=== PATIENT | female | born 1985 | race Caucasian/White ===

== ENCOUNTER 2016-11-10 18:43 | Emergency (ER) | payer OTHER ==
[~2016-11-10] VITALS: Ht 170.1 cm; Wt 79.4 kg
[~2016-11-10 18:43] MED LIST: ACETAZOLAMIDE250 MG PO; ALLEGRA60 M2 PO; AMOXIL500 M1 PO; AUGMENTIN 875875 MG PO; BACTRIM DS 8001 TA1 PO; BUTALBITAL-ASPI1 CAP PO; CIPROFLOXACIN500 MG PO; CLEOCIN HCL150 MG PO; CLINDAMYCIN HC300 MG PO; CLINDAMYCIN150 MG PO; CYCLOBENZAPRINE5 M3 PO; DIAMOX500 MG PO; FERRIMIN 150150 M1; FLEXERIL5 MG PO; HYDROCODONE BIT1 T11 PO; IBU600 MG PO; IRON90 MG PO; KEFLEX500 MG PO; LEVOFLOXACIN500 MG PO; MOTRIN800 MG PO; Motrin,Rufen800 MG PO; PAMELOR10 M1 PO; PAXIL20 M1 PO; PERCOCET 325 MG1 TA2 PO; PNV PRENATAL HE1 TAB PO; PREDNISONE10 MG PO; PREDNISONE20 M1 PO; PRENATAL1 TA1 PO; PROTONIX40 MG PO; PYRIDIUM200 MG PO; ROBAXIN750 MG PO; SILVADENE,SSD C50 GM PO; STOOL SOFTENER240 M2 PO; SYNTHROID,LEV100 MCG PO; SYNTHROID,LEV125 MCG PO; TRAMADOL HCL50 MG PO; VICODIN 5/500 505 MG PO; VITAMIN D400 I1 PO; VITAMINS FOR HA1 CAP PO; VOLTAREN50 M1 PO; ZITHROMAX Z PA250 MG PO; ZOFRAN ODT4 MG PO; ZOFRAN ODT4 MG SL
== END 2016-11-10 19:46 | disposition home or self-care (01) ==
LOC: ED 18:43
DX: N93.8 Other specified abnormal uterine and vaginal bleeding (principal); F17.200 Nicotine dependence, unspecified, uncomplicated; Z88.1 Allergy status to other antibiotic agents; Z79.899 Other long term (current) drug therapy

== ENCOUNTER 2017-08-09 17:55 | Emergency (ER) | payer OTHER ==
[~2017-08-09] VITALS: Wt 68.0 kg
[2017-08-09] MEDS ORDERED: ROBAXIN500 M1 PO (18:17)
[2017-08-09] MEDS ORDERED: ANAPROX DS550 MG PO (18:17)
== END 2017-08-09 18:18 | disposition home or self-care (01) ==
LOC: ED 17:55
DX: S39.012A Strain of muscle, fascia and tendon of lower back, initial encounter (principal); Z88.8 Allergy status to other drugs, medicaments and biological substances; X50.0XXA Overexertion from strenuous movement or load, initial encounter; Y93.89 Activity, other specified; Y92.89 Other specified places as the place of occurrence of the external cause; Y99.8 Other external cause status

== ENCOUNTER → 2018-04-26 | Outpatient (CLI) | payer OTHER ==
[~2018-04-26] MED LIST changes: +AMLODIPINE BESYL5 MG PO; +ANAPROX DS550 MG PO; +CEFTRIAXONE1 GM IJ; +LEVOTHYROXINE137 MCG PO; +METRONIDAZOLE500 M1 PO; +ROBAXIN500 M1 PO; +SYNTHROID,LEV112 MCG PO; +Synthroid,Levo50 MCG PO; +ZOFRAN4 MG PO
[2018-04-26 08:55] LABS: HEMATOCRIT 38.8 % (37.0-47.0); HEMOGLOBIN 12.7 g/dl (12.0-16.0); MEAN CELL VOLUME 85.7 fl (81.0-99.0); MEAN CORPUSCULAR HGB CONC 32.7 g/dl (33.0-37.0); MEAN PLATELET VOLUME 8.9 fl (9.6-12.3); PLATELET COUNT AUTOMATED 542 10*3/uL (130-400); RED BLOOD COUNT 4.53 10*6/uL (4.10-5.10); RED CELL DISTRI WIDTH 16.2 % (0-14.5); WHITE BLOOD COUNT 14.5 10*3/uL (4.8-10.8)
[2018-04-26 09:25] LABS: ALBUMIN 3.7 gm/dl (3.1-4.5); ALKALINE PHOSPHATASE 97 U/L (45-117); BUN 7 mg/dl (7-24); CHLORIDE 110 mmol/L (98-107); CHOLESTEROL 192 mg/dL (<200); CREATININE 0.84 mg/dL (0.55-1.02); HDL CHOLESTEROL 45 mg/dl (40-60); LDL CHOLESTEROL 110 mg/dL (9-159); POTASSIUM 3.9 mmol/L (3.5-5.1); SGOT/AST 17 IU/L (3-35); SGPT/ALT 25 U/L (12-78); SODIUM 139 mmol/L (136-145); T3 UPTAKE 30 % (31-39); TOTAL PROTEIN 7.6 gm/dL (6.4-8.2); TRIGLYCERIDES 183 mg/dl (<150); URIC ACID 4.7 mg/dL (2.6-6.0); VLDL CHOLESTEROL 37 mg/dL (6-40)
[2018-04-26 09:31] LABS: THYROXINE (T4) TOTAL 5.6 ug/dl (4.8-13.9)
[2018-04-26 09:40] LABS: TOTAL CELLS COUNTED 100 #CELLS
[2018-04-26 09:41] LABS: BURR CELLS FEW; PLATELET SUFFICIENCY HIGH (NORMAL)
[2018-04-27 08:07] LABS: IMMUNOGLOBULIN G, QNT 965 mg/dL (700-1600); IMMUNOGLOBULIN M, QNT 216 mg/dL (26-217); RHEUMATOID ARTHRITIS FACTOR <10.0 IU/mL (0.0-13.9)
[2018-04-27 16:08] LABS: ANTI-SMOOTH MUSCLE ANTIBODY 14 Units (0-19)
[2018-04-28 19:02] LABS: ALTERNARIA ALTERNATA, IGE <0.10 kU/L (Class 0); AMERICAN ELM, IGE <0.10 kU/L (Class 0); ASPERGILLUS FUMIGATU, IGE <0.10 kU/L (Class 0); BERMUDA GRASS, IGE <0.10 kU/L (Class 0); BIRCH, COMMON SILVER IGE <0.10 kU/L (Class 0); CLADOSPORIUM HERBARU, IGE <0.10 kU/L (Class 0); D FARINAE MITE <0.10 kU/L (Class 0); D PTERONYSSINUS <0.10 kU/L (Class 0); DOG DANDER, IGE <0.10 kU/L (Class 0); IMMUNOGLOBULIN IgE 002170 <2 IU/mL (0-100); MAPLE LEAF SYCAMORE, IGE <0.10 kU/L (Class 0); MAPLE/BOX ELDER, IGE <0.10 kU/L (Class 0); MOUSE URINE IGE <0.10 kU/L (Class 0); PENICILLIUM CHRYSOGENUM, IGE <0.10 kU/L (Class 0); ROUGH PIGWEED, IGE <0.10 kU/L (Class 0); SHEEP SORREL (DOCK), IGE <0.10 kU/L (Class 0); SHORT RAGWEED, IGE <0.10 kU/L (Class 0); TIMOTHY, IGE <0.10 kU/L (Class 0); WALNUT TREE, IGE <0.10 kU/L (Class 0); WHITE ASH, IGE <0.10 kU/L (Class 0); WHITE MULBERRY, IGE <0.10 kU/L (Class 0); WHITE OAK, IGE <0.10 kU/L (Class 0)
== END | disposition home or self-care (01) ==
LOC: LAB 08:30
PROVIDERS: Pediatrics
DX: E03.9 Hypothyroidism, unspecified (principal); J32.9 Chronic sinusitis, unspecified

== ENCOUNTER 2018-05-15 08:22 | Emergency (ER) | payer OTHER ==
[~2018-05-15] VITALS: Wt 79.8 kg
[~2018-05-15 08:22] MED LIST changes: -AMLODIPINE BESYL5 MG PO; -CEFTRIAXONE1 GM IJ; -LEVOTHYROXINE137 MCG PO; -METRONIDAZOLE500 M1 PO; -SYNTHROID,LEV112 MCG PO; -Synthroid,Levo50 MCG PO; -ZOFRAN4 MG PO
[2018-05-15] MEDS ORDERED: AMLODIPINE BESYL5 MG PO (08:24)
[2018-05-15] MEDS ORDERED: LEVOTHYROXINE137 MCG PO (08:25)
[2018-05-15 09:43] LABS: HEMATOCRIT 39.4 % (37.0-47.0); HEMOGLOBIN 12.7 g/dl (12.0-16.0); MEAN CELL VOLUME 85.8 fl (81.0-99.0); MEAN CORPUSCULAR HGB 27.7 pg (27.0-31.0); MEAN CORPUSCULAR HGB CONC 32.2 g/dl (33.0-37.0); MEAN PLATELET VOLUME 9.3 fl (9.6-12.3); PLATELET COUNT AUTOMATED 436 10*3/uL (130-400); RED BLOOD COUNT 4.59 10*6/uL (4.10-5.10); RED CELL DISTRI WIDTH 16.2 % (0-14.5); WHITE BLOOD COUNT 7.9 10*3/uL (4.8-10.8)
[2018-05-15 09:46] LABS: ALBUMIN 3.5 gm/dl (3.1-4.5); ALKALINE PHOSPHATASE 149 U/L (45-117); BUN 8 mg/dl (7-24); CHLORIDE 106 mmol/L (98-107); CREATININE 0.89 mg/dL (0.55-1.02); LIPASE 85 U/L (73-393); SGOT/AST 68 IU/L (3-35); SGPT/ALT 97 U/L (12-78); SODIUM 138 mmol/L (136-145); TOTAL PROTEIN 7.3 gm/dL (6.4-8.2)
[2018-05-15 09:49] LABS: ATYPICAL LYMPHS 3 % (0-0); PLATELET SUFFICIENCY HIGH (NORMAL); TOTAL CELLS COUNTED 100 #CELLS
[2018-05-15 09:54] LABS: ACANTHOCYTES FEW; BURR CELLS MODERATE
[2018-05-15 10:03] LABS: BILIRUBIN 1+ (NEGATIVE); BLOOD NEGATIVE (NEGATIVE); CLARITY SL CLOUDY (CLEAR); COLOR YELLOW (YELLOW); GLUCOSE NEGATIVE (NEGATIVE); KETONE 2+ (NEGATIVE); LEUKO ESTERASE NEGATIVE (NEGATIVE); NITRITE NEGATIVE (NEGATIVE); SPECIFIC GRAVITY >= 1.030 (1.005-1.030)
[2018-05-15 10:21] LABS: BACTERIA 2+; EPITHELIAL CELLS 21-30; MUCOUS 4+; RBC 0-2 rbc/hpf (0-2)
[2018-05-15] MEDS ORDERED: ZOFRAN4 MG PO (11:38)
[2018-05-26] MEDS ORDERED: Synthroid,Levo50 MCG PO (14:08)
[2018-05-26] MEDS ORDERED: SYNTHROID,LEV112 MCG PO (14:08)
[2018-05-26] MEDS ORDERED: METRONIDAZOLE500 M1 PO (14:08)
[2018-05-26] MEDS ORDERED: CEFTRIAXONE1 GM IJ (14:08)
== END 2018-05-15 11:57 | disposition home or self-care (01) ==
LOC: ED 08:22
PROVIDERS: Nurse Practitioner Family
DX: K52.9 Noninfective gastroenteritis and colitis, unspecified (principal); R03.0 Elevated blood-pressure reading, without diagnosis of hypertension; F17.200 Nicotine dependence, unspecified, uncomplicated; Z88.1 Allergy status to other antibiotic agents; Z79.899 Other long term (current) drug therapy

== ENCOUNTER → 2018-09-07 | Outpatient (CLI) | payer OTHER, BC ==
[~2018-09-07] MED LIST changes: +AMLODIPINE BESYL5 MG PO; +CEFTRIAXONE1 GM IJ; +LEVOTHYROXINE137 MCG PO; +METRONIDAZOLE500 M1 PO; +SYNTHROID,LEV112 MCG PO; +Synthroid,Levo50 MCG PO; +ZOFRAN4 MG PO
[2018-09-07 13:31] LABS: HEMATOCRIT 38.6 % (37.0-47.0); HEMOGLOBIN 11.8 g/dl (12.0-16.0); MEAN CELL VOLUME 82.3 fl (81.0-99.0); MEAN CORPUSCULAR HGB 25.2 pg (27.0-31.0); MEAN CORPUSCULAR HGB CONC 30.6 g/dl (33.0-37.0); MEAN PLATELET VOLUME 8.8 fl (9.6-12.3); PLATELET COUNT AUTOMATED 526 10*3/uL (130-400); RED BLOOD COUNT 4.69 10*6/uL (4.10-5.10); RED CELL DISTRI WIDTH 18.8 % (0-14.5); WHITE BLOOD COUNT 13.7 10*3/uL (4.8-10.8)
[2018-09-07 13:54] LABS: ALBUMIN 3.8 gm/dl (3.1-4.5); ALKALINE PHOSPHATASE 107 U/L (45-117); BUN 9 mg/dl (7-24); CHLORIDE 110 mmol/L (98-107); POTASSIUM 3.9 mmol/L (3.5-5.1); SGOT/AST 17 IU/L (3-35); SGPT/ALT 28 U/L (12-78); SODIUM 138 mmol/L (136-145); TOTAL PROTEIN 8.1 gm/dL (6.4-8.2)
[2018-09-07 14:00] LABS: ACT PARTIAL THROMBO TIME 23.4 SECONDS (20.8-31.5); INTERNATIONAL NORM RATIO 0.9 (2.0-3.5)
[2018-09-07 14:03] LABS: PLATELET SUFFICIENCY HIGH (NORMAL); TOTAL CELLS COUNTED 100 #CELLS
[2018-09-09 02:05] LABS: PROTEIN S, FREE 67 % (57-157); PROTEIN S, TOTAL 67 % (60-150); PROTEIN S-FUNCTIONAL 164525 64 % (63-140)
== END | disposition home or self-care (01) ==
LOC: LAB 13:02
PROVIDERS: Family Medicine
DX: D64.9 Anemia, unspecified (principal); D68.59 Other primary thrombophilia; E03.9 Hypothyroidism, unspecified; I82.0 Budd-Chiari syndrome; F32.9 Major depressive disorder, single episode, unspecified; E55.9 Vitamin D deficiency, unspecified

== ENCOUNTER → 2019-01-14 | Outpatient (CLI) | payer OTHER ==
[2019-01-14 11:15] LABS: HEMATOCRIT 39.4 % (37.0-47.0); HEMOGLOBIN 12.3 g/dl (12.0-16.0); MEAN CELL VOLUME 86.4 fl (81.0-99.0); MEAN CORPUSCULAR HGB CONC 31.2 g/dl (33.0-37.0); MEAN PLATELET VOLUME 9.5 fl (9.6-12.3); PLATELET COUNT AUTOMATED 537 10*3/uL (130-400); RED BLOOD COUNT 4.56 10*6/uL (4.10-5.10); RED CELL DISTRI WIDTH 20.9 % (0-14.5); WHITE BLOOD COUNT 18.9 10*3/uL (4.8-10.8)
[2019-01-14 11:42] LABS: ALBUMIN 3.8 gm/dl (3.1-4.5); ALKALINE PHOSPHATASE 97 U/L (45-117); BUN 10 mg/dl (7-24); CHLORIDE 109 mmol/L (98-107); CREATININE 0.98 mg/dL (0.55-1.02); IRON 42 ug/dL (50-170); POTASSIUM 3.4 mmol/L (3.5-5.1); SGOT/AST 14 IU/L (3-35); SGPT/ALT 21 U/L (12-78); SODIUM 140 mmol/L (136-145); TOTAL IRON BINDING CAPACITY 471 ug/dl (250-450); TOTAL PROTEIN 7.6 gm/dL (6.4-8.2)
[2019-01-14 12:03] LABS: FERRITIN 6.9 ng/mL (10.0-291.0)
[2019-01-14 12:05] LABS: HOWELL-JOLLY BODIES FEW; PLATELET SUFFICIENCY HIGH (NORMAL); POLYCHROMASIA SLIGHT; TOTAL CELLS COUNTED 100 #CELLS
[2019-01-14 12:08] LABS: TARGET CELLS FEW
[2019-01-18 09:08] LABS: CMV QNT Negative (Negative)
== END | disposition home or self-care (01) ==
LOC: LAB 01-13 15:32
PROVIDERS: Internal Medicine
DX: D72.829 Elevated white blood cell count, unspecified (principal); D72.820 Lymphocytosis (symptomatic); D50.9 Iron deficiency anemia, unspecified

== ENCOUNTER 2019-02-21 04:53 | Emergency (ER) | payer OTHER ==
[~2019-02-21] VITALS: Ht 170.1 cm; Wt 88.5 kg
== END 2019-02-21 06:54 | disposition home or self-care (01) ==
LOC: ED 04:53
DX: M54.2 Cervicalgia (principal); F17.210 Nicotine dependence, cigarettes, uncomplicated; Z88.2 Allergy status to sulfonamides; Z88.1 Allergy status to other antibiotic agents; Z79.899 Other long term (current) drug therapy; Y08.89XA Assault by other specified means, initial encounter; Y93.89 Activity, other specified; Y92.238 Other place in hospital as the place of occurrence of the external cause; Y99.8 Other external cause status

== ENCOUNTER → 2019-08-31 | Outpatient (CLI) | payer OTHER ==
[2019-09-02 00:04] LABS: B PERTUSSIS IGA AB <1.0 index (0.0-0.9); B PERTUSSIS IGM AB 2.4 index (0.0-0.9); DIPHTHERIA ANTITOXOID AB 1.15 IU/mL (<0.10); TETANUS ANTITOXOID IGG AB 3.12 IU/mL (<0.10)
[2019-09-02 21:03] LABS: B PERTUSSIS IGG AB 4.53 index (0.00-0.94)
== END | disposition home or self-care (01) ==
LOC: LAB 13:08
PROVIDERS: Family Medicine
DX: Z01.84 Encounter for antibody response examination (principal)

== ENCOUNTER → 2019-09-10 | Outpatient (CLI) | payer OTHER | END | disposition home or self-care (01) | LOC: CT 08:53 | DX: M85.00 Fibrous dysplasia (monostotic), unspecified site (principal); R51 Headache ==

== ENCOUNTER → 2019-09-19 | Outpatient (CLI) | payer OTHER | END | disposition home or self-care (01) | LOC: MRI 00:47 | DX: G43.509 Persistent migraine aura without cerebral infarction, not intractable, without status migrainosus (principal); G93.89 Other specified disorders of brain; M27.8 Other specified diseases of jaws; M54.2 Cervicalgia ==

== ENCOUNTER 2019-11-21 08:47 | Emergency (ER) | payer OTHER ==
[~2019-11-21] VITALS: Ht 170.1 cm; Wt 87.5 kg
[2019-11-21] MEDS ORDERED: ACYCLOVIR200 MG PO (09:13)
[2019-11-21] MEDS ORDERED: LIDEX 0.05% CRE15 GM T (09:13)
== END 2019-11-21 09:16 | disposition home or self-care (01) ==
LOC: ED 08:47
DX: B00.9 Herpesviral infection, unspecified (principal); L30.9 Dermatitis, unspecified; K21.9 Gastro-esophageal reflux disease without esophagitis; E03.9 Hypothyroidism, unspecified; F17.210 Nicotine dependence, cigarettes, uncomplicated; Z88.2 Allergy status to sulfonamides; Z88.1 Allergy status to other antibiotic agents; Z79.899 Other long term (current) drug therapy; Z98.51 Tubal ligation status

== ENCOUNTER → 2020-03-28 | Outpatient (CLI) | payer OTHER ==
[~2020-03-28] MED LIST changes: +ACYCLOVIR200 MG PO; +LIDEX 0.05% CRE15 GM T
[2020-03-28 11:32] LABS: HEMATOCRIT 45.9 % (37.0-47.0); MEAN CELL VOLUME 90.9 fl (81.0-99.0); MEAN CORPUSCULAR HGB 30.3 pg (27.0-31.0); MEAN CORPUSCULAR HGB CONC 33.3 g/dl (33.0-37.0); MEAN PLATELET VOLUME 9.2 fl (9.6-12.3); PLATELET COUNT AUTOMATED 482 10*3/uL (130-400); RED BLOOD COUNT 5.05 10*6/uL (4.10-5.10); RED CELL DISTRI WIDTH 13.2 % (0-14.5)
[2020-03-28 11:46] LABS: ALBUMIN 3.5 gm/dl (3.1-4.5); ALKALINE PHOSPHATASE 151 U/L (45-117); BUN 7 mg/dl (7-24); CHLORIDE 109 mmol/L (98-107); CREATININE 0.84 mg/dL (0.55-1.02); POTASSIUM 3.8 mmol/L (3.5-5.1); SGOT/AST 21 IU/L (3-35); SGPT/ALT 51 U/L (12-78); SODIUM 138 mmol/L (136-145); TOTAL PROTEIN 7.6 gm/dL (6.4-8.2)
[2020-03-28 11:50] LABS: TOTAL CELLS COUNTED 100 #CELLS
[2020-03-28 11:52] LABS: PLATELET SUFFICIENCY HIGH (NORMAL)
[2020-03-28 11:53] LABS: BURR CELLS FEW
[2020-03-28 12:06] LABS: FREE T4 1.61 ng/dl (0.76-1.46)
== END | disposition home or self-care (01) ==
LOC: LAB 11:14
PROVIDERS: Family Medicine; ATTEND Family Medicine
DX: Z13.1 Encounter for screening for diabetes mellitus (principal); C91.90 Lymphoid leukemia, unspecified not having achieved remission; E03.9 Hypothyroidism, unspecified; E55.9 Vitamin D deficiency, unspecified; R53.82 Chronic fatigue, unspecified

== ENCOUNTER → 2020-04-12 | Outpatient (CLI) | payer OTHER | END | disposition home or self-care (01) | LOC: CT 13:00 | PROVIDERS: ATTEND Specialist | DX: M85.08 Fibrous dysplasia (monostotic), other site (principal) ==

== ENCOUNTER → 2020-04-30 | Outpatient (CLI) | payer OTHER | END | disposition home or self-care (01) | LOC: RAD 17:34 | PROVIDERS: ATTEND Family Medicine | DX: R06.02 Shortness of breath (principal); R06.2 Wheezing ==

== ENCOUNTER → 2020-05-01 | Outpatient (CLI) | payer OTHER | END | disposition home or self-care (01) | LOC: COVID19 07:36 | PROVIDERS: ATTEND Family Medicine | DX: Z20.828 Contact with and (suspected) exposure to other viral communicable diseases (principal) ==

== ENCOUNTER → 2020-05-09 | Outpatient (CLI) | payer OTHER | END | disposition home or self-care (01) | LOC: US 04-17 08:30 | PROVIDERS: ATTEND Family Medicine | DX: R16.2 Hepatomegaly with splenomegaly, not elsewhere classified (principal) ==

== ENCOUNTER 2020-12-26 15:03 | Emergency (ER) | payer OTHER ==
[~2020-12-26] VITALS: Ht 170.1 cm; Wt 74.8 kg
[2020-12-26] MEDS ORDERED: IBUPROFEN600 MG PO (16:58)
== END 2020-12-26 17:12 | disposition home or self-care (01) ==
LOC: ED 15:03
DX: M77.9 Enthesopathy, unspecified (principal); M25.531 Pain in right wrist; Z98.51 Tubal ligation status; Z98.890 Other specified postprocedural states; Z88.1 Allergy status to other antibiotic agents; Z88.8 Allergy status to other drugs, medicaments and biological substances

== ENCOUNTER → 2021-02-25 | Outpatient (CLI) | payer OTHER ==
[~2021-02-25] MED LIST changes: +IBUPROFEN600 MG PO
== END | disposition home or self-care (01) ==
LOC: MRI 09:00
PROVIDERS: ATTEND Neurological Surgery
DX: M85.08 Fibrous dysplasia (monostotic), other site (principal); M27.8 Other specified diseases of jaws; G93.5 Compression of brain; Z98.890 Other specified postprocedural states

== ENCOUNTER → 2021-04-02 | Outpatient (CLI) | payer OTHER | END | disposition home or self-care (01) | LOC: COVID19 15:55 | PROVIDERS: ATTEND Hospitalist | DX: Z11.52 Encounter for screening for COVID-19 (principal) ==

== ENCOUNTER 2021-08-27 08:55 | Emergency (ER) | payer OTHER ==
[~2021-08-27] VITALS: Wt 87.1 kg
[2021-08-27] MEDS ORDERED: VOLTAREN ARTHRI20 GM T (09:55)
[2021-08-27] MEDS ORDERED: NAPROXEN250 MG PO (09:55)
[2021-08-27] MEDS ORDERED: TYLENOL325 M1 PO (09:55)
== END 2021-08-27 10:05 | disposition home or self-care (01) ==
LOC: ED 08:55
DX: S50.01XA Contusion of right elbow, initial encounter (principal); S49.91XA Unspecified injury of right shoulder and upper arm, initial encounter; E03.9 Hypothyroidism, unspecified; F17.210 Nicotine dependence, cigarettes, uncomplicated; Z88.1 Allergy status to other antibiotic agents; W00.0XXA Fall on same level due to ice and snow, initial encounter; Y93.89 Activity, other specified; Y92.89 Other specified places as the place of occurrence of the external cause; Y99.8 Other external cause status

== ENCOUNTER 2021-12-01 08:12 | Emergency (ER) | payer OTHER ==
[~2021-12-01] VITALS: Wt 77.1 kg
[~2021-12-01 08:12] MED LIST changes: +NAPROXEN250 MG PO; +TYLENOL325 M1 PO; +VOLTAREN ARTHRI20 GM T
[2021-12-01] MEDS ORDERED: TYLENOL325 M1 PO (08:36)
[2021-12-01] MEDS ORDERED: NAPROXEN250 MG PO (08:36)
== END 2021-12-01 09:00 | disposition home or self-care (01) ==
LOC: ED 08:12
DX: S82.892A Other fracture of left lower leg, initial encounter for closed fracture (principal); Z88.1 Allergy status to other antibiotic agents; E03.9 Hypothyroidism, unspecified; E66.9 Obesity, unspecified; F17.210 Nicotine dependence, cigarettes, uncomplicated; X58.XXXA Exposure to other specified factors, initial encounter; Y93.89 Activity, other specified; Y92.89 Other specified places as the place of occurrence of the external cause; Y99.8 Other external cause status

== ENCOUNTER → 2022-02-05 | Outpatient (CLI) | payer OTHER | END | disposition home or self-care (01) | LOC: US 09:24 | PROVIDERS: ATTEND Family Medicine | DX: E04.2 Nontoxic multinodular goiter (principal); E06.3 Autoimmune thyroiditis ==

== ENCOUNTER 2022-03-15 15:01 | Emergency (ER) | payer OTHER ==
[~2022-03-15] VITALS: Wt 88.5 kg
[2022-03-15] MEDS ORDERED: NAPROSYN500 MG PO (17:44)
== END 2022-03-15 17:51 | disposition home or self-care (01) ==
LOC: ED 15:01
DX: S16.1XXA Strain of muscle, fascia and tendon at neck level, initial encounter (principal); F17.210 Nicotine dependence, cigarettes, uncomplicated; Z88.2 Allergy status to sulfonamides; Z88.1 Allergy status to other antibiotic agents; Z79.899 Other long term (current) drug therapy; Z98.51 Tubal ligation status; Y04.8XXA Assault by other bodily force, initial encounter; Y93.89 Activity, other specified; Y92.238 Other place in hospital as the place of occurrence of the external cause; Y99.0 Civilian activity done for income or pay

== ENCOUNTER → 2022-03-18 | Outpatient (CLI) | payer OTHER ==
[~2022-03-18] MED LIST changes: +NAPROSYN500 MG PO
== END | disposition home or self-care (01) ==
LOC: CT 10:40
PROVIDERS: ATTEND Specialist
DX: J32.0 Chronic maxillary sinusitis (principal); D23.4 Other benign neoplasm of skin of scalp and neck; J34.89 Other specified disorders of nose and nasal sinuses

== ENCOUNTER → 2022-04-15 | Outpatient (CLI) | payer OTHER ==
[2022-04-15 10:00] LABS: FREE T4 0.61 ng/dl (0.76-1.46)
== END | disposition home or self-care (01) ==
LOC: LAB 08:42
PROVIDERS: ATTEND Family Medicine
DX: E06.3 Autoimmune thyroiditis (principal)

== ENCOUNTER 2022-06-01 17:57 | Emergency (ER) | payer OTHER ==
[~2022-06-01] VITALS: Wt 88.9 kg
== END 2022-06-01 19:12 | disposition home or self-care (01) ==
LOC: ED 17:57
DX: S61.214A Laceration without foreign body of right ring finger without damage to nail, initial encounter (principal); S60.041A Contusion of right ring finger without damage to nail, initial encounter; Z88.1 Allergy status to other antibiotic agents; Z88.8 Allergy status to other drugs, medicaments and biological substances; W23.0XXA Caught, crushed, jammed, or pinched between moving objects, initial encounter; Y93.89 Activity, other specified; Y92.69 Other specified industrial and construction area as the place of occurrence of the external cause; Y99.9 Unspecified external cause status

== ENCOUNTER 2022-06-13 19:30 | Emergency (ER) | payer OTHER ==
[~2022-06-13 19:30] MED LIST changes: -VIBRAMYCIN100 MG PO
[2022-06-13 20:23] LABS: HEMATOCRIT 38.6 % (37.0-47.0); MEAN CELL VOLUME 92.3 fl (81.0-99.0); MEAN CORPUSCULAR HGB 31.6 pg (27.0-31.0); MEAN CORPUSCULAR HGB CONC 34.2 g/dl (33.0-37.0); MEAN PLATELET VOLUME 9.2 fl (9.6-12.3); PLATELET COUNT AUTOMATED 479 10*3/uL (130-400); RED BLOOD COUNT 4.18 10*6/uL (4.10-5.10); RED CELL DISTRI WIDTH 14.5 % (0-14.5); WHITE BLOOD COUNT 15.5 10*3/uL (4.8-10.8)
[2022-06-13 20:25] LABS: MANUAL DIFF REFLEX YES
[2022-06-13 20:36] LABS: BUN 12 mg/dl (7-24); CHLORIDE 111 mmol/L (98-107); CREATININE 0.91 mg/dL (0.55-1.02); POTASSIUM 3.9 mmol/L (3.5-5.1); SODIUM 140 mmol/L (136-145)
[2022-06-13 20:46] LABS: ATYPICAL LYMPHS 1 % (0-0); TOTAL CELLS COUNTED 100 #CELLS
[2022-06-13 20:47] LABS: BURR CELLS FEW; PLATELET SUFFICIENCY HIGH (NORMAL)
[2022-06-13] MEDS ORDERED: VIBRAMYCIN100 MG PO (21:07)
== END 2022-06-13 21:24 | disposition home or self-care (01) ==
LOC: ED 19:30
PROVIDERS: Internal Medicine
DX: A41.9 Sepsis, unspecified organism (principal); L03.113 Cellulitis of right upper limb; Z88.1 Allergy status to other antibiotic agents; Z88.8 Allergy status to other drugs, medicaments and biological substances

== ENCOUNTER → 2022-06-13 | Outpatient (CLI) | payer OTHER ==
[~2022-06-13] MED LIST changes: +VIBRAMYCIN100 MG PO
== END | disposition home or self-care (01) ==
LOC: RAD 10:59
PROVIDERS: ATTEND Family Medicine
DX: L03.113 Cellulitis of right upper limb (principal)

== ENCOUNTER 2022-10-02 09:32 | Emergency (ER) | payer OTHER ==
[~2022-10-02] VITALS: Wt 90.7 kg
[~2022-10-02 09:32] MED LIST changes: +VIBRAMYCIN100 MG PO
[2022-10-02] MEDS ORDERED: CYCLOBENZAPRINE10 MG PO (09:49)
[2022-10-02] MEDS ORDERED: IBU800 M2 PO (09:49)
== END 2022-10-02 09:55 | disposition home or self-care (01) ==
LOC: ED 09:32
DX: S29.019A Strain of muscle and tendon of unspecified wall of thorax, initial encounter (principal); S29.011A Strain of muscle and tendon of front wall of thorax, initial encounter; M54.50 Low back pain, unspecified; F17.210 Nicotine dependence, cigarettes, uncomplicated; Z88.1 Allergy status to other antibiotic agents; Z98.51 Tubal ligation status; Y08.89XA Assault by other specified means, initial encounter; Y93.89 Activity, other specified; Y92.89 Other specified places as the place of occurrence of the external cause; Y99.8 Other external cause status

== ENCOUNTER → 2022-10-10 | Outpatient (CLI) | payer OTHER ==
[~2022-10-10] MED LIST changes: +CYCLOBENZAPRINE10 MG PO; +IBU800 M2 PO
[2022-10-10 16:04] LABS: HEMATOCRIT 40.6 % (37.0-47.0); MEAN CELL VOLUME 88.3 fl (81.0-99.0); MEAN CORPUSCULAR HGB 29.8 pg (27.0-31.0); MEAN CORPUSCULAR HGB CONC 33.7 g/dl (33.0-37.0); MEAN PLATELET VOLUME 9.5 fl (9.6-12.3); PLATELET COUNT AUTOMATED 607 10*3/uL (130-400); WHITE BLOOD COUNT 15.4 10*3/uL (4.8-10.8)
[2022-10-10 16:06] LABS: FREE T4 0.7 ng/dl (0.89-1.76)
[2022-10-10 16:10] LABS: ACT PARTIAL THROMBO TIME 26.9 SECONDS (20.0-32.1); INTERNATIONAL NORM RATIO 0.9 (2.0-3.5)
[2022-10-10 16:13] LABS: MANUAL DIFF REFLEX YES
[2022-10-10 16:28] LABS: THYROID STIM HORMONE (HS) 26.847 uIU/ml (0.550-4.780)
[2022-10-10 16:49] LABS: ATYPICAL LYMPHS 4 % (0-0); PLATELET SUFFICIENCY HIGH (NORMAL); TOTAL CELLS COUNTED 100 #CELLS
[2022-10-10 16:50] LABS: TARGET CELLS FEW
== END | disposition home or self-care (01) ==
LOC: LAB 15:00
PROVIDERS: Family Medicine; ATTEND Family Medicine
DX: E06.3 Autoimmune thyroiditis (principal); D72.829 Elevated white blood cell count, unspecified; D68.59 Other primary thrombophilia; E55.9 Vitamin D deficiency, unspecified

== ENCOUNTER → 2022-11-12 | Outpatient (CLI) | payer OTHER | END | disposition home or self-care (01) | LOC: CT 10-20 10:00 → EDSTATUS 08:00 → CT 08:00 | PROVIDERS: ATTEND Specialist | DX: M85.08 Fibrous dysplasia (monostotic), other site (principal) ==

== ENCOUNTER → 2022-12-05 | Outpatient (CLI) | payer OTHER ==
[2022-12-05 14:41] LABS: ALKALINE PHOSPHATASE 86 U/L (46-116); BUN 10 mg/dl (9-23); CHLORIDE 108 mmol/L (98-107); CHOLESTEROL 174 mg/dL (<200); FREE T4 0.72 ng/dl (0.89-1.76); LDL CHOLESTEROL 65 mg/dL (9-159); POTASSIUM 3.8 mmol/L (3.4-5.1); SGPT/ALT 21 U/L (10-49); TOTAL PROTEIN 6.8 gm/dL (6.0-8.0); TRIGLYCERIDES 267 mg/dl (<150)
[2022-12-05 15:01] LABS: THYROID STIM HORMONE (HS) 21.967 uIU/ml (0.550-4.780)
== END | disposition home or self-care (01) ==
LOC: LAB 13:22
PROVIDERS: ATTEND Family Medicine
DX: E78.5 Hyperlipidemia, unspecified (principal); E06.3 Autoimmune thyroiditis; R79.0 Abnormal level of blood mineral; E55.9 Vitamin D deficiency, unspecified; R73.02 Impaired glucose tolerance (oral)

== ENCOUNTER → 2023-07-30 | Outpatient (CLI) | payer OTHER ==
[2023-07-30 15:22] LABS: HEMATOCRIT 38.9 % (37.0-47.0); MEAN CELL VOLUME 92.4 fl (81.0-99.0); MEAN CORPUSCULAR HGB 30.6 pg (27.0-31.0); MEAN CORPUSCULAR HGB CONC 33.2 g/dl (33.0-37.0); MEAN PLATELET VOLUME 9.4 fl (9.6-12.3); PLATELET COUNT AUTOMATED 473 10*3/uL (130-400); RED BLOOD COUNT 4.21 10*6/uL (4.10-5.10); RED CELL DISTRI WIDTH 15.8 % (0-14.5); WHITE BLOOD COUNT 13.3 10*3/uL (4.8-10.8)
[2023-07-30 15:23] LABS: MANUAL DIFF REFLEX YES
[2023-07-30 15:38] LABS: FREE T4 1.1 ng/dl (0.89-1.76)
[2023-07-30 16:15] LABS: BASOPHILS 1 % (0-1); BURR CELLS FEW; TARGET CELLS MANY; TOTAL CELLS COUNTED 100 #CELLS
[2023-07-30 16:16] LABS: PLATELET SUFFICIENCY HIGH (NORMAL)
== END | disposition home or self-care (01) ==
LOC: LAB 12:51
PROVIDERS: Family Medicine; ATTEND Family Medicine
DX: E03.9 Hypothyroidism, unspecified (principal); D72.829 Elevated white blood cell count, unspecified

== ENCOUNTER 2023-09-20 18:03 | Emergency (ER) | payer OTHER ==
[~2023-09-20] VITALS: Ht 167.6 cm; Wt 89.4 kg
[2023-09-20] MEDS ORDERED: HYDROmorphONE Hydrochloride 0.5 MG/0.5 ML SYRINGE IV ONE (18:35)
[2023-09-20] MEDS ORDERED: Ondansetron Hydrochloride 4 MG/2 ML VIAL IV ONE (18:35)
[2023-09-20] MEDS ORDERED: SODIUM CHLORIDE 0.9% 1,000 ML IV SCH (18:35)
[2023-09-20] MEDS ORDERED: IOHEXOL 300 MG/ML 100 ML VIAL IV ONE (18:45)
[2023-09-20 18:57] LABS: HEMATOCRIT 41.4 % (37.0-47.0); MEAN CELL VOLUME 92.6 fl (81.0-99.0); MEAN CORPUSCULAR HGB 30.6 pg (27.0-31.0); MEAN CORPUSCULAR HGB CONC 33.1 g/dl (33.0-37.0); PLATELET COUNT AUTOMATED 479 10*3/uL (130-400); RED BLOOD COUNT 4.47 10*6/uL (4.10-5.10); RED CELL DISTRI WIDTH 15.1 % (0-14.5); WHITE BLOOD COUNT 15.8 10*3/uL (4.8-10.8)
[2023-09-20 18:58] LABS: MANUAL DIFF REFLEX YES
[2023-09-20 19:07] LABS: ACT PARTIAL THROMBO TIME 26.7 SECONDS (20.0-32.1)
[2023-09-20 19:14] LABS: BILIRUBIN Negative (Negative); BLOOD Trace-Lysed (Negative); CLARITY Clear (Clear); COLOR Yellow (Yellow); GLUCOSE Negative (Negative); KETONE Negative (Negative); LEUKO ESTERASE Negative (Negative); NITRITE Negative (Negative); SPECIFIC GRAVITY 1.015 (1.001-1.030); UROBILINOGEN 0.2 E.U./dl (0.0-1.0)
[2023-09-20 19:18] LABS: ALKALINE PHOSPHATASE 92 U/L (46-116); BUN 6 mg/dl (9-23); CHLORIDE 108 mmol/L (98-107); LIPASE 35 U/L (12-53); POTASSIUM 3.9 mmol/L (3.4-5.1); SGPT/ALT 30 U/L (5-49); TOTAL PROTEIN 7.1 gm/dL (6.0-8.0)
[2023-09-20 19:24] LABS: ATYPICAL LYMPHS 3 % (0-0); BURR CELLS FEW; PLATELET SUFFICIENCY HIGH (NORMAL); TOTAL CELLS COUNTED 100 #CELLS
[2023-09-20 19:32] LABS: BACTERIA 1+; MUCOUS 2+
[2023-09-20] MEDS ORDERED: METRONIDAZOLE500 M1 PO (21:16)
[2023-09-20] MEDS ORDERED: CIPRO500 MG PO (21:16)
[2023-09-20] MEDS ORDERED: ONDANSETRON4 MG SL (21:18)
[2023-09-20] MEDS ORDERED: METRONIDAZOLE 500 MG TAB PO ONE (21:25)
[2023-09-20] MEDS ORDERED: Ciprofloxacin Hydrochloride 500 MG TAB PO ONE (21:25)
== END 2023-09-20 21:56 | disposition home or self-care (01) ==
LOC: ED 18:03
PROVIDERS: Nurse Practitioner Family
DX: K52.9 Noninfective gastroenteritis and colitis, unspecified (principal); K64.9 Unspecified hemorrhoids; R11.2 Nausea with vomiting, unspecified; E87.1 Hypo-osmolality and hyponatremia; E03.9 Hypothyroidism, unspecified; D64.9 Anemia, unspecified; K21.9 Gastro-esophageal reflux disease without esophagitis; F17.210 Nicotine dependence, cigarettes, uncomplicated; Z98.51 Tubal ligation status; Z98.890 Other specified postprocedural states; Z88.0 Allergy status to penicillin; Z88.2 Allergy status to sulfonamides; Z88.1 Allergy status to other antibiotic agents; Z88.8 Allergy status to other drugs, medicaments and biological substances

== ENCOUNTER 2023-10-15 19:17 | Emergency (ER) | payer OTHER ==
[~2023-10-15] VITALS: Ht 167.6 cm; Wt 89.4 kg
[~2023-10-15 19:17] MED LIST changes: +CIPRO500 MG PO; +ONDANSETRON4 MG SL
[2023-10-15] MEDS ORDERED: ASPIRIN81 M1 PO (19:34)
[2023-10-15] MEDS ORDERED: AMLODIPINE BESY10 MG PO (19:35)
[2023-10-15] MEDS ORDERED: MAGNESIUM500 MG PO (19:35)
[2023-10-15] MEDS ORDERED: PAMELOR10 M1 PO (19:35)
[2023-10-15] MEDS ORDERED: WELLBUTRIN XL150 MG PO (19:36)
[2023-10-15] MEDS ORDERED: WELLBUTRIN XL300 MG PO (19:36)
[2023-10-15] MEDS ORDERED: METFORMIN XR500 MG PO (19:37)
[2023-10-15] MEDS ORDERED: [UNRECOGNIZED DRUG - OTHER] PO (19:37)
[2023-10-15] MEDS ORDERED: ROSUVASTATIN CA20 MG PO (19:38)
[2023-10-15] MEDS ORDERED: IMITREX25 M1 PO (19:39)
[2023-10-15] MEDS ORDERED: VISTARIL25 M2 PO (19:39)
[2023-10-15] MEDS ORDERED: VITAMIN D31250 MC2 PO (19:40)
[2023-10-15] MEDS ORDERED: PROVENTIL HFA6.7 GM INH (19:40)
[2023-10-15] MEDS ORDERED: CLARITIN10 MG PO (19:40)
[2023-10-15 20:08] LABS: HEMATOCRIT 35.3 % (37.0-47.0); MEAN CELL VOLUME 93.6 fl (81.0-99.0); MEAN CORPUSCULAR HGB CONC 33.1 g/dl (33.0-37.0); MEAN PLATELET VOLUME 8.9 fl (9.6-12.3); PLATELET COUNT AUTOMATED 480 10*3/uL (130-400); RED BLOOD COUNT 3.77 10*6/uL (4.10-5.10); RED CELL DISTRI WIDTH 15.3 % (0-14.5)
[2023-10-15 20:10] LABS: MANUAL DIFF REFLEX YES
[2023-10-15 20:22] LABS: BUN 10 mg/dl (9-23); CHLORIDE 109 mmol/L (98-107); POTASSIUM 3.6 mmol/L (3.4-5.1)
[2023-10-15 21:14] LABS: PLATELET SUFFICIENCY HIGH (NORMAL); TOTAL CELLS COUNTED 100 #CELLS
[2023-10-15 21:15] LABS: STOMATOCYTE FEW
[2023-10-15] MEDS ORDERED: VIBRAMYCIN100 MG PO (21:21)
== END 2023-10-15 21:32 | disposition home or self-care (01) ==
LOC: ED 19:17
PROVIDERS: Nurse Practitioner
DX: L72.3 Sebaceous cyst (principal); K21.9 Gastro-esophageal reflux disease without esophagitis; E03.9 Hypothyroidism, unspecified; Z88.0 Allergy status to penicillin; Z88.2 Allergy status to sulfonamides; Z88.1 Allergy status to other antibiotic agents; Z88.8 Allergy status to other drugs, medicaments and biological substances; Z98.51 Tubal ligation status; Z98.890 Other specified postprocedural states; F17.210 Nicotine dependence, cigarettes, uncomplicated

== ENCOUNTER → 2023-10-21 | Outpatient (CLI) | payer OTHER ==
[~2023-10-21] MED LIST changes: +AMLODIPINE BESY10 MG PO; +ASPIRIN81 M1 PO; +CLARITIN10 MG PO; +IMITREX25 M1 PO; +MAGNESIUM500 MG PO; +METFORMIN XR500 MG PO; +PROVENTIL HFA6.7 GM INH; +ROSUVASTATIN CA20 MG PO; +VISTARIL25 M2 PO; +VITAMIN D31250 MC2 PO; +WELLBUTRIN XL150 MG PO; +WELLBUTRIN XL300 MG PO; +[UNRECOGNIZED DRUG - OTHER] PO
== END | disposition home or self-care (01) ==
LOC: WOUNDCARE 03:48
PROVIDERS: ATTEND Nurse Practitioner Family
DX: L02.811 Cutaneous abscess of head [any part, except face] (principal); L03.90 Cellulitis, unspecified; L72.3 Sebaceous cyst; C91.50 Adult T-cell lymphoma/leukemia (HTLV-1-associated) not having achieved remission; F17.210 Nicotine dependence, cigarettes, uncomplicated; Z98.51 Tubal ligation status; Z98.890 Other specified postprocedural states; Z79.84 Long term (current) use of oral hypoglycemic drugs; Z79.899 Other long term (current) drug therapy

== ENCOUNTER → 2023-10-28 | Outpatient (CLI) | payer OTHER | END | disposition home or self-care (01) | LOC: WOUNDCARE 01:33 | PROVIDERS: ATTEND Nurse Practitioner Family | DX: L02.811 Cutaneous abscess of head [any part, except face] (principal); L03.90 Cellulitis, unspecified; L72.3 Sebaceous cyst; C91.50 Adult T-cell lymphoma/leukemia (HTLV-1-associated) not having achieved remission; F17.210 Nicotine dependence, cigarettes, uncomplicated; Z98.51 Tubal ligation status; Z79.84 Long term (current) use of oral hypoglycemic drugs; Z79.899 Other long term (current) drug therapy ==

== ENCOUNTER 2024-01-11 19:05 | Emergency (ER) | payer OTHER ==
[~2024-01-11] VITALS: Ht 167.6 cm; Wt 88.9 kg
[2024-01-11] MEDS ORDERED: Amoxicillin/Clavulanate Pota 875 MG TAB PO ONE (19:20)
[2024-01-11] MEDS ORDERED: AMOX-CLAV 875-1 EACH PO (19:22)
[2024-01-11] MEDS ORDERED: Tdap Vaccine 0.5 ML SYR (Adult Vaccine) IM ONE (19:25)
[2024-01-13 06:10] LABS: HEPATITIS B SURFACE AB Non Reactive (.)
== END 2024-01-11 19:59 | disposition home or self-care (01) ==
LOC: ED 19:05
PROVIDERS: Physician Assistant Medical
DX: S41.152A Open bite of left upper arm, initial encounter (principal); K21.9 Gastro-esophageal reflux disease without esophagitis; E03.9 Hypothyroidism, unspecified; F17.210 Nicotine dependence, cigarettes, uncomplicated; Z88.2 Allergy status to sulfonamides; Z88.1 Allergy status to other antibiotic agents; Z88.8 Allergy status to other drugs, medicaments and biological substances; Z98.51 Tubal ligation status; Z98.890 Other specified postprocedural states; W55.81XA Bitten by other mammals, initial encounter; Y93.89 Activity, other specified; Y92.239 Unspecified place in hospital as the place of occurrence of the external cause; Y99.0 Civilian activity done for income or pay

== ENCOUNTER → 2024-03-11 | Outpatient (CLI) | payer OTHER ==
[~2024-03-11] MED LIST changes: +AMOX-CLAV 875-1 EACH PO
[2024-03-11 11:08] LABS: MEAN CELL VOLUME 86.7 fl (81.0-99.0); MEAN CORPUSCULAR HGB 29.4 pg (27.0-31.0); MEAN CORPUSCULAR HGB CONC 33.9 g/dl (33.0-37.0); PLATELET COUNT AUTOMATED 510 10*3/uL (130-400); RED BLOOD COUNT 4.15 10*6/uL (4.10-5.10); RED CELL DISTRI WIDTH 17.1 % (0-14.5); WHITE BLOOD COUNT 15.8 10*3/uL (4.8-10.8)
[2024-03-11 11:10] LABS: MANUAL DIFF REFLEX YES
[2024-03-11 11:34] LABS: TOTAL CELLS COUNTED 100 #CELLS
[2024-03-11 11:35] LABS: HOWELL-JOLLY BODIES FEW; PLATELET SUFFICIENCY HIGH (NORMAL); POLYCHROMASIA SLIGHT; TARGET CELLS FEW
[2024-03-11 11:42] LABS: ALKALINE PHOSPHATASE 79 U/L (46-116); BUN 9 mg/dl (9-23); CHLORIDE 108 mmol/L (98-107); CHOLESTEROL 135 mg/dL (<200); LDL CHOLESTEROL 58 mg/dL (9-159); POTASSIUM 4.1 mmol/L (3.4-5.1); SGPT/ALT 22 U/L (5-49); TOTAL PROTEIN 6.8 gm/dL (6.0-8.0); TRIGLYCERIDES 156 mg/dl (<150)
[2024-03-11 11:44] LABS: VITAMIN D, 25-HYDROXY 51.3 ng/mL (30-100)
== END | disposition home or self-care (01) ==
LOC: LAB 10:28
DX: Z79.899 Other long term (current) drug therapy (principal)

== ENCOUNTER 2024-04-08 19:12 | Emergency (ER) | payer OTHER ==
[~2024-04-08] VITALS: Wt 82.6 kg
[2024-04-08] MEDS ORDERED: METFORMIN XR500 MG PO (19:20)
[2024-04-08] MEDS ORDERED: Doxycycline Hyclate 100 MG CAP PO ONE (19:55)
[2024-04-08 20:06] LABS: BASO % 0.1 % (0.0-1.0); EOS % 0.1 % (1.0-4.0); HEMATOCRIT 33.9 % (37.0-47.0); LYMPH # 4.9 10*3/uL (1.3-4.4); LYMPH % 35.5 % (27.0-41.0); MEAN CELL VOLUME 87.8 fl (81.0-99.0); MONO # 1.1 10*3/uL (0.1-1.0); MONO % 7.6 % (3.0-9.0); NEUT # 7.8 10*3/uL (2.3-7.9); NEUT % 56.5 % (47.0-73.0); PLATELET COUNT AUTOMATED 484 10*3/uL (130-400); RED BLOOD COUNT 3.86 10*6/uL (4.10-5.10); RED CELL DISTRI WIDTH 16.2 % (0-14.5); WHITE BLOOD COUNT 13.8 10*3/uL (4.8-10.8)
[2024-04-08 20:25] LABS: BUN 10 mg/dl (9-23); CHLORIDE 108 mmol/L (98-107); POTASSIUM 3.7 mmol/L (3.4-5.1)
[2024-04-08] MEDS ORDERED: TRAMADOL HCL50 MG PO (20:41)
== END 2024-04-08 20:44 | disposition home or self-care (01) ==
LOC: ED 19:12
PROVIDERS: Internal Medicine
DX: L03.113 Cellulitis of right upper limb (principal); K21.9 Gastro-esophageal reflux disease without esophagitis; E03.9 Hypothyroidism, unspecified; F17.210 Nicotine dependence, cigarettes, uncomplicated; Z88.2 Allergy status to sulfonamides; Z88.1 Allergy status to other antibiotic agents; Z88.8 Allergy status to other drugs, medicaments and biological substances; Z98.51 Tubal ligation status; Z98.890 Other specified postprocedural states

== ENCOUNTER → 2024-06-22 | Outpatient (CLI) | payer OTHER ==
[2024-06-22 12:00] LABS: FREE T4 0.67 ng/dl (0.89-1.76)
== END | disposition home or self-care (01) ==
LOC: LAB 10:30
PROVIDERS: ATTEND Internal Medicine Endocrinology, Diabetes & Metabolism
DX: E06.3 Autoimmune thyroiditis (principal)

== ENCOUNTER → 2024-09-07 | Outpatient (CLI) | payer OTHER ==
[2024-09-07 11:49] LABS: ALKALINE PHOSPHATASE 91 U/L (46-116); BUN 12 mg/dl (9-23); CHLORIDE 106 mmol/L (98-107); CHOLESTEROL 182 mg/dL (<200); LDL CHOLESTEROL 99 mg/dL (9-159); POTASSIUM 4.1 mmol/L (3.4-5.1); SGPT/ALT 19 U/L (5-49); TRIGLYCERIDES 184 mg/dl (<150)
== END | disposition home or self-care (01) ==
LOC: LAB 10:32
PROVIDERS: Student in an Organized Health Care Education/Training Program; ATTEND Student in an Organized Health Care Education/Training Program
DX: E78.2 Mixed hyperlipidemia (principal); E06.3 Autoimmune thyroiditis; E11.9 Type 2 diabetes mellitus without complications